=== PATIENT | female | born 1980 | race Asian ===

== ENCOUNTER 2019-12-07 07:30 | Emergency (ER) | payer MEDICARE, MEDICAID ==
[~2019-12-07] VITALS: Ht 162.6 cm; Wt 70.3 kg
[2019-12-07 07:39] VITALS: Ht 162.6 cm; Wt 70.3 kg
[2019-12-07 12:55] VITALS: BP 98/51
== END 2019-12-07 12:55 | disposition left against medical advice (07) ==
LOC: ED 07:30
DX: R55 Syncope and collapse (principal); F32.9 Major depressive disorder, single episode, unspecified
CPT/HCPCS: 85378; Q0162